=== PATIENT | female | born 1975 | race Caucasian/White ===

== ENCOUNTER 2021-05-26 19:33 | Emergency (ER) | payer OTHER ==
[~2021-05-26 19:33] MED LIST: AMLODIPINE BESY10 MG PO; AMOXICILLIN500 MG PO; AUGMENTIN 875-1 EACH PO; BACLOFEN10 MG PO; CATAPRES 0.1MG0.1 MG PO; CLARITIN10 M1 PO; CLEOCIN 150MG150 MG PO; CLEOCIN HCL300 MG PO; EFFEXOR 25 MG T25 MG PO; EFFEXOR XR150 MG PO; FLONASE 0.05% N16 GM; GABAPENTIN300 MG PO; HYDROCHLOROTHIA25 MG PO; HYDROCHLOROTHIA50 MG PO; IBUPROFEN600 MG PO; LIORESAL TAB 1010 MG PO; LISINOPRIL20 MG PO; NAPROXEN375 MG PO; NICOTINE PATCH1 EAC2 TOP; OMEPRAZOLE40 MG PO; PENVEE K 500 M500 MG PO; PHENERGAN 25 MG25 M1 PO; PRILOSEC OTC20 MG PO; TRAMADOL HCL50 MG PO; TYLENOL 500 MG500 MG PO; VENLAFAXINE HC150 M1 PO; VISTARIL 50 MG50 MG PO; VISTARIL50 MG PO; VITAMIN B COMP1 EACH PO; VOLTAREN EC 5050 MG PO; Viscous lidocaine2% TOP; WELLBUTRIN XL300 M1 PO; XANAX0.5 MG PO; ZOFRAN ODT 4 MG4 MG SL; ZOFRAN4 MG PO
== END 2021-05-26 19:45 | disposition left against medical advice (07) ==
LOC: ER1 19:33
DX: Z53.21 Procedure and treatment not carried out due to patient leaving prior to being seen by health care provider (principal)

== ENCOUNTER 2021-06-10 18:11 | Emergency (ER) | payer OTHER ==
[2021-06-10 20:23] LABS: HEMOGLOBIN 12.3 gm/dl (12.3-15.3); RED BLOOD COUNT 4.43 M/UL (4.00-5.10); WHITE BLOOD COUNT 13.8 K/UL (4.5-11.0)
[2021-06-10 20:52] LABS: BUN/CREATININE RATIO 10 (0-10)
== END 2021-06-11 03:15 | disposition short-term general hospital (02) ==
LOC: ER1 18:11
PROVIDERS: Emergency Medicine
DX: F32.9 Major depressive disorder, single episode, unspecified (principal); R10.9 Unspecified abdominal pain; I10 Essential (primary) hypertension; F17.200 Nicotine dependence, unspecified, uncomplicated; Z20.822 Contact with and (suspected) exposure to COVID-19
CPT/HCPCS: 80053; 80307; 81001; 82550; 82553; 84484; 84703; 85025; 93005; 96372; 99285; G0480; J3360; Q9967; U0002

== ENCOUNTER 2021-08-31 14:29 | Emergency (ER) | payer OTHER | END 2021-08-31 19:38 | disposition short-term general hospital (02) | LOC: ER1 14:29 | DX: R45.851 Suicidal ideations (principal); Z20.822 Contact with and (suspected) exposure to COVID-19 | CPT/HCPCS: 99285; U0002 ==

== ENCOUNTER 2022-01-28 17:26 | Emergency (ER) | payer OTHER ==
[~2022-01-28 17:26] MED LIST changes: +BISACODYL5 MG PO; -CATAPRES 0.1MG0.1 MG PO; -FLONASE 0.05% N16 GM; -GABAPENTIN300 MG PO; -LIORESAL TAB 1010 MG PO; -VISTARIL 50 MG50 MG PO
[2022-01-28 18:14] LABS: HEMOGLOBIN 11.8 gm/dl (12.3-15.3); RED BLOOD COUNT 4.35 M/UL (4.00-5.10); WHITE BLOOD COUNT 9.2 K/UL (4.5-11.0)
[2022-01-29] MEDS ORDERED: FUROSEMIDE40 MG PO (13:55)
[2022-01-29] MEDS ORDERED: ZESTRIL20 MG PO (14:01)
[2022-01-29] MEDS ORDERED: VENLAFAXINE HC225 MG PO (14:02)
[2022-01-29] MEDS ORDERED: B-COMPLEX WITH1 EACH PO (14:03)
[2022-01-29] MEDS ORDERED: BUPROPION XL150 MG PO (14:03)
[2022-01-29] MEDS ORDERED: CLARITIN10 MG PO (14:05)
[2022-01-29] MEDS ORDERED: NICOTINE GUM4 MG BU (14:06)
[2022-01-29] MEDS ORDERED: ACETAMINOPHEN325 MG PO (14:07)
[2022-01-29] MEDS ORDERED: HYDROCHLOROTHIA50 MG PO (14:34)
[2022-01-29] MEDS ORDERED: K-TAB ER20 MEQ PO (14:37)
[2022-01-29] MEDS ORDERED: CATAPRES 0.1MG0.1 MG PO (18:37)
[2022-01-29] MEDS ORDERED: GABAPENTIN300 MG PO (18:40)
[2022-01-29] MEDS ORDERED: FLONASE 0.05% N16 GM (20:37)
[2022-01-29] MEDS ORDERED: PHENERGAN 25 MG25 M1 PO (20:37)
[2022-01-29] MEDS ORDERED: LIORESAL TAB 1010 MG PO (20:39)
[2022-01-29] MEDS ORDERED: HYDROXYZINE HCL50 MG PO (20:40)
== END 2022-01-30 11:10 | disposition short-term general hospital (02) ==
LOC: ER1 17:26
PROVIDERS: Family Medicine
DX: E11.65 Type 2 diabetes mellitus with hyperglycemia (principal); Z20.822 Contact with and (suspected) exposure to COVID-19; E11.22 Type 2 diabetes mellitus with diabetic chronic kidney disease; G89.29 Other chronic pain; I12.9 Hypertensive chronic kidney disease with stage 1 through stage 4 chronic kidney disease, or unspecified chronic kidney disease; E87.1 Hypo-osmolality and hyponatremia; F19.10 Other psychoactive substance abuse, uncomplicated; F17.200 Nicotine dependence, unspecified, uncomplicated
CPT/HCPCS: 80048; 82009; 82803; 82962; 85025; 96372; 96374; 99285; U0002

== ENCOUNTER 2022-02-22 20:28 | Emergency (ER) | payer OTHER ==
[~2022-02-22 20:28] MED LIST changes: +ACETAMINOPHEN325 MG PO; +B-COMPLEX WITH1 EACH PO; +BUPROPION XL150 MG PO; +CATAPRES 0.1MG0.1 MG PO; +CLARITIN10 MG PO; +FLONASE 0.05% N16 GM; +FUROSEMIDE40 MG PO; +GABAPENTIN300 MG PO; +HYDROXYZINE HCL50 MG PO; +K-TAB ER20 MEQ PO; +LIORESAL TAB 1010 MG PO; +NICOTINE GUM4 MG BU; +VENLAFAXINE HC225 MG PO; +ZESTRIL20 MG PO
[2022-02-22 21:13] LABS: HEMOGLOBIN 12.2 gm/dl (12.3-15.3); RED BLOOD COUNT 4.36 M/UL (4.00-5.10); WHITE BLOOD COUNT 10.5 K/UL (4.5-11.0)
== END 2022-02-23 07:23 | disposition short-term general hospital (02) ==
LOC: ER1 20:28
PROVIDERS: Family Medicine; Physician Assistant Medical
DX: B37.0 Candidal stomatitis (principal); F41.9 Anxiety disorder, unspecified; H61.21 Impacted cerumen, right ear; Z20.822 Contact with and (suspected) exposure to COVID-19; E11.9 Type 2 diabetes mellitus without complications; K21.9 Gastro-esophageal reflux disease without esophagitis; F17.200 Nicotine dependence, unspecified, uncomplicated; Z79.84 Long term (current) use of oral hypoglycemic drugs
CPT/HCPCS: 80053; 80307; 81001; 84439; 84443; 84550; 85025; 96374; 99284; G0480; J2060; U0002

== ENCOUNTER 2022-03-28 20:31 | Emergency (ER) | payer OTHER ==
[2022-03-28 21:46] LABS: HEMOGLOBIN 12.5 gm/dl (12.3-15.3); RED BLOOD COUNT 4.46 M/UL (4.00-5.10); WHITE BLOOD COUNT 11.1 K/UL (4.5-11.0)
[2022-03-28 22:12] LABS: BUN/CREATININE RATIO 15 (0-10)
== END 2022-03-29 01:00 | disposition short-term general hospital (02) ==
LOC: ER1 20:31
PROVIDERS: Physician Assistant
DX: F32.A Depression, unspecified (principal); E11.22 Type 2 diabetes mellitus with diabetic chronic kidney disease; F13.10 Sedative, hypnotic or anxiolytic abuse, uncomplicated; N18.9 Chronic kidney disease, unspecified; Z20.822 Contact with and (suspected) exposure to COVID-19; E87.6 Hypokalemia; I12.9 Hypertensive chronic kidney disease with stage 1 through stage 4 chronic kidney disease, or unspecified chronic kidney disease; Z88.6 Allergy status to analgesic agent; Z79.899 Other long term (current) drug therapy
CPT/HCPCS: 80053; 81001; 82550; 82553; 84484; 85025; 87086; 99285; Q0177; U0002

== ENCOUNTER 2022-04-19 23:55 | Emergency (ER) | payer OTHER | END 2022-04-20 09:45 | disposition short-term general hospital (02) | LOC: ER1 23:55 | DX: R45.851 Suicidal ideations (principal); I10 Essential (primary) hypertension; F17.200 Nicotine dependence, unspecified, uncomplicated; Z20.822 Contact with and (suspected) exposure to COVID-19; Z88.6 Allergy status to analgesic agent; Z79.899 Other long term (current) drug therapy | CPT/HCPCS: 99285; U0002 ==